=== PATIENT | female | born 1995 | race Caucasian/White ===

== ENCOUNTER 2020-12-18 10:37 | Emergency (ER) | payer BC, SELFPAY ==
[2020-12-18 10:42] VITALS: BP 138/89; PULSE 99; RESP 16; TEMP 36.5; O2SAT 100; BMI 34.7
[2020-12-18 11:02] VITALS: BP 138/89; PULSE 89; RESP 16; TEMP 36.6
[2020-12-18 11:02] LABS: UTC Strep Screen (Rapid) Positive (Negative)
--- NOTE | 2020-12-18 11:03 | HMH.EDUTC ---
[facility] [place] Clinical Impression: Strep throat Disposition: Home, Self-Care Condition on Discharge: Good Instructions: DI for Strep Throat, Strep Throat, Amoxicillin Additional Instructions: *Monitor Temp, Over the counter Motrin or Tylenol as directed/as needed Tylenol every 4 hours and Motrin every 6 hours (as long as your family doctor has told you that you can take it) for fever or pain. and straight to ER if unable to lower temp less than 101.0 after medication given *Warm salt water gargles may help to soothe the throat *Throat Lozenges *Warm fluids like tea with honey may help to soothe the throat *Sleep elevated *Humidifier/Vaporizer *If you did not take Penicillin shot or was unable to, start taking antibiotic immediately and make sure that you take it for the FULL length of time although you should start to feel better in 24-48 hours *change toothbrush and toothpaste 24-48 hours after starting to take antibiotics so you do not reinfect yourself Monitor Temp. Tylenol and/or Ibuprofen as needed. ER if fever is no less than 101 despite alternating Tylenol and Ibuprofen * Encourage fluids, water, Gatorade, powerade, pedialyte if /toddler/or child *Cold fluids, popsicles and ice cream may feel good on his throat Follow up IMMEDIATELY for new or worsening symptoms or no Noticeable improvement over the next 48-72 hours. 911 for difficulty breathing or swallowing Prescriptions: Amoxicillin [Amoxicillin 500mg Cap] 500 mg PO BID 10 Days #20 cap Transmission Status: Pending to Clinic Pharmacy [facility] Referrals: PCP,No [Primary Care Provider] - As needed Forms: Work/School Release Medical Decision Making - Royal Inquiry Pt receiving controlled substance: No Royal was queried for this patient: No Vital Signs: 12/18/20 10:42 12/18/20 11:02 Temperature 97.7 F 98 F Temperature Source Oral Pulse Rate 89 Pulse Rate [Right] 99 H Respiratory Rate 16 16 Blood Pressure 138/89 Blood Pressure [Right Arm] 138/89 Blood Pressure Mean [Right Arm] 105 Blood Pressure Source [Right Arm] Automatic Cuff Blood Pressure Position [Right Arm] Sitting 02 Sat by Pulse Oximetry 100 Oxygen Delivery Method Room Air - Lab Data Lab results reviewed: Yes: I reviewed the patient's lab results. Lab Results 12/18/20 10:59: Strep Scn Rapid Clinic Positive A [facility] [place] - General Stated complaint: Sore Throat Time Seen by Provider: 12/18/20 11:03 Mode of Arrival: Ambulatory Source of Information: Patient Limitations: No Limitations Description of Symptoms (Recalled from Triage Doc. by RN): sore throat. pt had a low grade fever, but took tylenol. HEENT Symptoms (Recalled from RN notes): Yes (sore throat) Resp Symptoms (Recalled from RN notes): No Skin Symptoms (Recalled from RN notes): No MS Symptoms (Recalled from RN notes): No Functional Status (Recalled from RN notes): na - History of Present Illness Provider Complaint: Patient state that she started having sore throat and low grade fever yesterday State that when she woke up today her throat was still hurting and feeling scratchy and had low grade fever so she took some Tylenol and came in to get checked States that she has had strep several times and feel like it does when she has it - Related Data Previous Rx's Medication Instructions Recorded Amoxicillin [Amoxicillin 500mg 500 mg PO BID 10 Days #20 cap 12/18/20 Cap] Allergies Allergy/AdvReac Type Severity Reaction Status Date / Time No Known Allergies Allergy Verified 12/18/20 10:59 - Worker's Comp Is this a Worker's Comp case?: No [facility] History - Hepatitis A Screen Drug use history?: No High risk sexual behaviors?: No History of sexually transmitted infection?: No Currently employed?: No Childcare worker?: No Do you have indoor plumbing?: Yes Do you have electricity?: Yes Attestation statement:: This patient has been screened for Hepatitis A risk factors. Lizzeth ackerman
== END 2020-12-18 11:10 | disposition home or self-care (01) ==
PROVIDERS: Emergency Provider Nurse Practitioner
DX: J02.0 Streptococcal pharyngitis (principal)
CPT/HCPCS: 87880; 99202; G0463

== ENCOUNTER → 2022-07-31 14:48 | Outpatient (CLI) | payer BC, SELFPAY ==
[2022-07-31 16:29] LABS: HCG,Quantitative 168 mIU/ml (0-5.42)
== END ==
PROVIDERS: PCP Family Medicine; Visit Provider Obstetrics & Gynecology
DX: N92.6 Irregular menstruation, unspecified; Z32.00 Encounter for pregnancy test, result unknown
CPT/HCPCS: 36415; 84702

== ENCOUNTER → 2022-08-21 14:53 | Outpatient (CLI) | payer BC, SELFPAY ==
[2022-08-21 16:47] LABS: Basophils # 0.1 K/mm3 (0-0.2); Basophils % 0.8 % (0.1-2.0); Eosinophils # 0.1 K/mm3 (0.0-0.4); Eosinophils % 0.5 % (0.1-12.0); Hematocrit 40.8 % (37.0-47.0); Hemoglobin 13.2 g/dL (12.2-16.2); Lymphocytes # 1.5 K/mm3 (0.7-4.5); Lymphocytes % 15.4 % (10-50); Mean Corpuscular HGB Conc 32.4 g/dL (31.8-35.4); Mean Corpuscular Hemoglobin 30.4 pg (27.0-31.2); Mean Corpuscular Volume 93.9 fl (81-99); Mean Platelet Volume 8.8 fl (7.4-10.4); Monocytes # 0.4 K/mm3 (0.1-1.0); Monocytes % 4.1 % (1.7-9.3); Neutrophils # 7.8 K/mm3 (1.8-7.8); Neutrophils % 79.3 % (37.0-80.0); Platelet Count 318 K/mm3 (142-424); Red Blood Count 4.35 M/mm3 (4.20-5.40); Red Cell Distribution Width 13.3 % (11.5-17.5); White Blood Count 9.8 K/mm3 (4.8-10.8)
[2022-08-23 13:49] LABS: Rapid Plasma Reagin Ab Titer Non Reactive (NonRea<1:1)
[2022-09-07 20:32] LABS: HIV Screen 4th Generation wRfx Non Reactive
[2022-09-07 20:33] LABS: Hepatitis B Surface Antigen Non Reactive; Hepatitis C Antibody <0.1
== END ==
PROVIDERS: PCP Family Medicine; Visit Provider Obstetrics & Gynecology
DX: Z34.90 Encounter for supervision of normal pregnancy, unspecified, unspecified trimester (principal)
CPT/HCPCS: 36415; 85025; 86592; 86703; 86762; 86850; 87340; 87380; G0432

== ENCOUNTER → 2022-12-02 13:00 | Outpatient (CLI) | payer OTHER, SELFPAY ==
--- NOTE | 2022-12-02 13:00 | US_ITS ---
FINAL REPORT CLINICAL HISTORY: 20 week anatomy scan FINDINGS: There is a single live intrauterine gestation. Presentation is breech. The cervix is closed and measures 4.8 cm. Placenta is posterior and grade 1. movement is noted. Questionable Low Grider contraction anteriorly. Three-vessel cord with satisfactory umbilical cord insertion. Four-chamber heart is noted. brain and ventricles are unremarkable. Chest and diaphragm are unremarkable. ABDOMEN: Both kidneys are unremarkable. Stomach is unremarkable. SPINE: No anomalies identified. Both arms and legs noted. AMNIOTIC FLUID: Appropriate amount. MEASUREMENTS: ULTRASOUND AGE: 22 weeks 0 days. GESTATION AGE: 21 weeks 6 days. ESTIMATED WEIGHT: 478 g GROWTH PERCENTILE: 58% BPD: 5.2 cm consistent with 21 weeks 5 days. OFD: 7 cm consistent with 22 weeks 5 days. HC: 19.4 cm consistent with 21 weeks 5 days. AC: 17.5 cm consistent with 22 weeks 3 days. FL: 3.8 cm consistent with 22 weeks 0 days. CEREBELLUM: 2.2 cm consistent with 22 weeks 1 days. HUMERUS: 3.7 cm consistent with 22 weeks 6 days. HC/AC: 1.11 CI: 74% FL/BPD: 72% FL/AC: 21% IMPRESSION: Single living IUP with an ultrasound age of 22 weeks 0 days. Questionable Low Grider contraction anteriorly. Reviewed, Interpreted and Dictated by Jaden Smiley III, MD Transcribed by Ez Sommers Authenticated and [facility]
== END ==
PROVIDERS: PCP Family Medicine; Visit Provider Obstetrics & Gynecology
DX: Z34.90 Encounter for supervision of normal pregnancy, unspecified, unspecified trimester (principal); Z3A.20 20 weeks gestation of pregnancy
CPT/HCPCS: 76811

== ENCOUNTER 2022-12-23 08:13 | Emergency (ER) | payer OTHER, SELFPAY ==
[2022-12-23 08:40] VITALS: BP 137/90; PULSE 126; RESP 20; TEMP 37.3; O2SAT 98; BMI 40.3
--- NOTE | 2022-12-23 08:58 | EXP.UTC ---
Discharge Plan Disposition Patient Disposition: Home, Self-Care Condition: Good Prescriptions Prescriptions: New amoxicillin [amoxicillin] 500 mg tablet 500 mg PO TID 10 Days Qty: 30 0RF No Action aspirin [Adult Aspirin Regimen] 81 mg tablet,delayed release (DR/EC) 81 mg PO DAILY cyanocobalamin (vitamin B-12) 1,000 mcg capsule 1,000 mcg PO DAILY DHA 200 mg capsule PO labetalol 100 mg tablet 100 mg PO DAILY Rx Instructions: Take 1 tablet by mouth, daily Referrals Follow up/Referrals: Provider,Referral, MD [Primary Care Provider] - See instructions Activity Restrictions/Add. Instructions Additional Instructions/Restrictions: Drink plenty of fluids. Take tylenol or ibuprofen for pain or fever. Take the medications as directed. Follow up with your regular doctor. GO TO THE ER FOR ANY WORSENING SYMPTOMS Throw your tooth brush away and get a new one. Clinical Impressions Clinical Impression: Strep throat Stand Alone Forms Stand Alone Forms: Work/School Release Instructions Patient Instructions: Strep Throat, DI for Strep Throat Discharge ED Provider: Fadi Antonio [facility] [place] General Stated complaint: Sore throat Mode of Arrival: Ambulatory Source of Information: Patient Limitations: No Limitations Time Seen by Provider: 12/23/22 08:58 Description of Symptoms (Recalled from Triage Doc. by RN): sore throat, strep HEENT Symptoms (Recalled from RN notes): Yes Resp Symptoms (Recalled from RN notes): No Skin Symptoms (Recalled from RN notes): No MS Symptoms (Recalled from RN notes): No Functional Status (Recalled from RN notes): n/a History of Present Illness Provider Complaint: She states that she has had a sore throat for the past 2 days. Related Data Home Medications Medication Instructions Recorded Confirmed docosahexaenoic acid 200 mg mg PO 08/21/22 12/16/22 capsule ( DHA) aspirin 81 mg tablet,delayed 81 mg PO DAILY 10/21/22 12/16/22 release (Adult Aspirin Regimen) cyanocobalamin (vitamin B-12) 1,000 mcg PO DAILY 12/16/22 12/16/22 1,000 mcg capsule labetalol 100 mg tablet 100 mg PO DAILY . 12/23/22 12/23/22 Previous Rx's Medication Instructions Recorded amoxicillin 500 mg tablet 500 mg PO TID 10 days #30 tabs 12/23/22 Allergies Allergy/AdvReac Type Severity Reaction Status Date / Time No Known Allergies Allergy Verified 12/23/22 08:54 Worker's Comp Is this a Worker's Comp case?: No [facility] Disclaimer: The information contained in this section may have been updated after the patient was seen, as this information can be updated by other users. Medical History Chronic hypertension affecting Maternal obesity affecting , antepartum No active medical problems Screening for genetic disease carrier status Surgical History No history of previous surgery Social History Smoking Status: Never smoker alcohol intake: current substance use type: denies use current occupational status: employed and other details: [place] Travel in the last 8 weeks: Inside the [facility] marital status: single number of children: 0 other: Last PAP SMEAR 2018 - Normal ROS Obtained: Yes All systems reviewed & no additional complaints except as documented Constitutional Constitutional: Reports chills and Reports fever(s) Eyes Eyes: Denies eye discharge ENT Ears, Nose, Mouth, and Throat: Reports as per HPI Cardiovascular Cardiovascular: Denies chest pain Respiratory Respiratory: Denies chest congestion and Reports cough Gastrointestinal Gastrointestingal: Reports nausea; Denies abdominal pain, constipation, cramping, diarrhea or vomiting Musculoskeletal Musculoskeletal: Denies arthralgias Integumentary/Breasts Skin/Breast: Denies
[2022-12-23 09:00] LABS: UTC Strep Screen (Rapid) Positive (Negative)
[2022-12-23 09:38] VITALS: BP 137/90; PULSE 126; RESP 20; TEMP 37.3; O2SAT 98
== END 2022-12-23 09:38 | disposition home or self-care (01) ==
PROVIDERS: Emergency Provider Nurse Practitioner Family
DX: J02.0 Streptococcal pharyngitis (principal); R50.9 Fever, unspecified
CPT/HCPCS: 87880; 99212; 99214; G0463

== ENCOUNTER → 2022-12-30 09:20 | Outpatient (CLI) | payer OTHER, SELFPAY ==
--- NOTE | 2022-12-30 09:21 | US_ITS ---
FINAL REPORT CLINICAL HISTORY: bleeding during -- spotting last week FINDINGS: There is a single live intrauterine gestation. Presentation is breech. Placenta is posterior, fundal and grade 1. Heart rate is 146 beats per minute. Cervix measures 4.2 cm. Visualized anatomy is within normal limits. The fetus is active. AMNIOTIC FLUID: Appropriate amount. MEASUREMENTS: ULTRASOUND AGE: 25 weeks 5 days. GESTATION AGE: 25 weeks 6 days. ESTIMATED WEIGHT: 831 g GROWTH PERCENTILE: 29% BPD: 6.4 cm corresponding to 25 weeks 6 days. OFD: 8.5 cm corresponding to 26 weeks 2 days. HC: 23.6 cm corresponding to 25 weeks 5 days. AC: 21.2 cm corresponding to 25 weeks 5 days. FL: 4.7 cm corresponding to 25 weeks 4 days. HC/AC: 1.12 CI: 75% FL/BPD: 73% FL/AC: 22% IMPRESSION: Single living IUP with an ultrasound age of 25 weeks 5 days. Reviewed, Interpreted and Dictated by Jaden Smiley III, MD Transcribed by Ez Sommers Authenticated and [facility]
== END ==
PROVIDERS: Visit Provider Obstetrics & Gynecology
DX: O46.90 Antepartum hemorrhage, unspecified, unspecified trimester (principal); Z3A.25 25 weeks gestation of pregnancy
CPT/HCPCS: 76816

== ENCOUNTER → 2023-01-01 07:52 | Outpatient (CLI) | payer OTHER, SELFPAY ==
[2023-01-01 08:09] LABS: Basophils % 0.2 % (0.1-2.0); Eosinophils # 0.1 K/mm3 (0.0-0.4); Eosinophils % 0.8 % (0.1-12.0); Hematocrit 34.3 % (37.0-47.0); Hemoglobin 11.3 g/dL (12.2-16.2); Lymphocytes # 1.5 K/mm3 (0.7-4.5); Lymphocytes % 16.6 % (10-50); Mean Corpuscular HGB Conc 33.1 g/dL (31.8-35.4); Mean Corpuscular Volume 90.7 fl (81-99); Mean Platelet Volume 9.3 fl (7.4-10.4); Monocytes # 0.5 K/mm3 (0.1-1.0); Monocytes % 5.7 % (1.7-9.3); Neutrophils # 6.7 K/mm3 (1.8-7.8); Neutrophils % 76.6 % (37.0-80.0); Platelet Count 240 K/mm3 (142-424); Red Blood Count 3.78 M/mm3 (4.20-5.40); Red Cell Distribution Width 14.6 % (11.5-17.5); White Blood Count 8.8 K/mm3 (4.8-10.8)
[2023-01-01 08:22] LABS: Glucose,Fasting 92 mg/dl (74-100)
[2023-01-01 09:50] LABS: Glucose 1 Hour 144 mg/dL (74-100)
== END ==
PROVIDERS: PCP Nurse Practitioner Family; Visit Provider Obstetrics & Gynecology
DX: Z34.90 Encounter for supervision of normal pregnancy, unspecified, unspecified trimester (principal); Z3A.25 25 weeks gestation of pregnancy
CPT/HCPCS: 36415; 82951; 85025

== ENCOUNTER → 2023-01-08 08:14 | Outpatient (CLI) | payer OTHER, SELFPAY ==
[2023-01-08 08:52] LABS: Glucose,Fasting 92 mg/dl (74-100)
[2023-01-08 10:10] LABS: Glucose 1 Hour 154 mg/dL (74-100)
[2023-01-08 11:10] LABS: Glucose 2 Hour 122 mg/dL (74-100)
[2023-01-08 12:12] LABS: Glucose 3 Hour 109 mg/dL (74-100)
== END ==
PROVIDERS: PCP Family Medicine; Visit Provider Obstetrics & Gynecology
DX: Z34.90 Encounter for supervision of normal pregnancy, unspecified, unspecified trimester (principal); Z3A.27 27 weeks gestation of pregnancy
CPT/HCPCS: 36415; 82951

== ENCOUNTER 2023-01-31 09:27 | Outpatient (CLI) | payer OTHER, SELFPAY ==
[2023-01-31 09:34] VITALS: BMI 41.3
[2023-01-31 09:42] LABS: Microscopic, Urine URINE MICROSCOPIC (MICROSCOPIC)
[2023-01-31 09:45] LABS: Appearance,Urine CLOUDY (Clear); Bilirubin,Urine Negative (Negative); Blood, Urine TRACE-I (Negative); Color,Urine YELLOW (Yellow); Glucose,Urine (UA) Negative (Negative); Ketones,Urine Negative (Negative); Leukocyte Esterase,Urine 1+ (Negative); Nitrate,Urine Negative (Negative); Protein,Urine TRACE (Negative); Specific Gravity, Urine 1.025 (1.005-1.030)
[2023-01-31 09:53] VITALS: BP 146/93; PULSE 125; RESP 20; TEMP 37.2; O2SAT 98; BMI 41.3
[2023-01-31 09:56] LABS: Bacteria,Urine 3+ /lpf; RBC,Urine Occasional #/hpf (0-3)
[2023-01-31 09:57] LABS: Amphetamine/Metha Screen,Urine Negative ng/ml (<1000); Barbiturates Screen,Urine Negative ng/ml (<200)
[2023-01-31 09:58] LABS: Benzodiazepines Screen,Urine Negative ng/ml (<200)
[2023-01-31 09:59] LABS: Cannabinoid Screen,Urine Negative ng/ml (<50); Cocaine Screen,Urine Negative ng/ml (<300)
[2023-01-31 10:00] LABS: Methadone Screen,Urine Negative ng/ml (<300)
[2023-01-31 10:01] LABS: Opiate Screen,Urine Negative ng/ml (<300); Phencyclidine Screen,Urine Negative ng/ml (<25)
[2023-01-31 10:15] VITALS: BP 130/90; PULSE 106; TEMP 36.9
== END 2023-01-31 11:00 | disposition home or self-care (01) ==
LOC: OBOUT 09:28 → OB 09:28
PROVIDERS: Visit Provider Obstetrics & Gynecology
DX: O36.8130 Decreased fetal movements, third trimester, not applicable or unspecified (principal); Z3A.30 30 weeks gestation of pregnancy
CPT/HCPCS: 59025; 80305; 81001; 87086; G0463

== ENCOUNTER → 2023-02-13 12:57 | Outpatient (CLI) | payer OTHER, SELFPAY ==
--- NOTE | 2023-02-13 12:58 | US_ITS ---
FINAL REPORT TECHNIQUE: Transvaginal ultrasound imaging of the pelvis was obtained. CLINICAL HISTORY: Large gestational age COMPARISON: 12/30/2022 FINDINGS: Cervix measures 3.4 cm. Fetus is in cephalic position. Heart rate is identified at 140 beats per minute. There is a three-vessel cord. The placenta is posterior and grade 2. DORY is normal at 16. Fetus it measures 79% growth percentile. Weight is 2221 g, previously measured 831 g. Average ultrasound age is 33 weeks 6 days. BPD: 8.63 cm consistent with 34 weeks 6 days. OFD: 10.54 cm consistent with 33 weeks 2 days. HC: 30.26 cm consistent with 33 weeks 5 days. AC: 29.9 cm consistent with 33 weeks 6 days. FL: 6.29 cm consistent with 32 weeks 4 days. IMPRESSION: Single, living intrauterine gestation with average ultrasound age of 33 weeks 6 days. DORY, normal at 16. Reviewed, Interpreted and Dictated by Jaden Smiley III, MD Transcribed by Oliva Gee Authenticated and [facility]
== END ==
PROVIDERS: PCP Obstetrics & Gynecology; Visit Provider Obstetrics & Gynecology
DX: O36.60X0 Maternal care for excessive fetal growth, unspecified trimester, not applicable or unspecified (principal)
CPT/HCPCS: 76816

== ENCOUNTER → 2023-03-05 16:57 | Outpatient (CLI) | payer OTHER, SELFPAY | PROVIDERS: Visit Provider Obstetrics & Gynecology | DX: O10.913 Unspecified pre-existing hypertension complicating pregnancy, third trimester (principal); Z3A.36 36 weeks gestation of pregnancy | CPT/HCPCS: 86403 ==

== ENCOUNTER → 2023-03-12 11:13 | Outpatient (CLI) | payer OTHER, SELFPAY ==
[2023-03-12 11:41] LABS: Basophils % 0.1 % (0.1-2.0); Eosinophils # 0.1 K/mm3 (0.0-0.4); Eosinophils % 0.7 % (0.1-12.0); Hematocrit 29.1 % (37.0-47.0); Hemoglobin 9.7 g/dL (12.2-16.2); Lymphocytes # 0.9 K/mm3 (0.7-4.5); Lymphocytes % 9.4 % (10-50); Mean Corpuscular HGB Conc 33.2 g/dL (31.8-35.4); Mean Corpuscular Hemoglobin 26.5 pg (27.0-31.2); Mean Corpuscular Volume 79.7 fl (81-99); Mean Platelet Volume 9.5 fl (7.4-10.4); Monocytes # 0.8 K/mm3 (0.1-1.0); Monocytes % 7.8 % (1.7-9.3); Neutrophils # 7.9 K/mm3 (1.8-7.8); Platelet Count 234 K/mm3 (142-424); Red Blood Count 3.65 M/mm3 (4.20-5.40); Red Cell Distribution Width 16.1 % (11.5-17.5); White Blood Count 9.6 K/mm3 (4.8-10.8)
[2023-03-12 12:19] LABS: Anion Gap 12.5 mEq/L (5-15); Blood Urea Nitrogen 3 mg/dl (7-17); Carbon Dioxide 24 mmol/L (22.0-30.0); Chloride 104 mmol/L (98-107); Estimated Glomerular Filt Rate 149 ml/min (>60); GFR (African American) 180 ML/MIN (>60); Glucose 84 mg/dl (74-100); Potassium 3.5 mmoL/L (3.5-5.1); Sodium 137 mmol/L (136-145)
== END ==
PROVIDERS: PCP Nurse Practitioner Family; Visit Provider Obstetrics & Gynecology
DX: O10.913 Unspecified pre-existing hypertension complicating pregnancy, third trimester (principal); Z3A.36 36 weeks gestation of pregnancy
CPT/HCPCS: 36415; 80048; 85025

== ENCOUNTER → 2023-03-13 15:23 | Outpatient (CLI) | payer OTHER, SELFPAY ==
[2023-03-13 19:00] LABS: Collection Time,Urine 24 hours; Total Volume,Urine 2500 mL (600-1600)
[2023-03-13 19:02] LABS: Patient Height,Urine 66 inches; Patient Weight,Urine 256 lbs
[2023-03-13 19:44] LABS: Total Protein 24 Hour,Urine 375 mg/24 hr (40-90)
[2023-03-13 19:46] LABS: Creatinine 24 Hour,Urine 1900 mg/24hr (630-2500)
[2023-03-13 19:53] LABS: Creatinine Clearance Urine 206.2 mL/min (25-115); Creatinine,Urine Random 76 mg/dL (Not Estab.)
== END ==
PROVIDERS: PCP Nurse Practitioner Family; Visit Provider Obstetrics & Gynecology
DX: O10.913 Unspecified pre-existing hypertension complicating pregnancy, third trimester (principal); Z3A.36 36 weeks gestation of pregnancy
CPT/HCPCS: 36415; 82575; 84155

== ENCOUNTER 2023-03-18 15:59 | Inpatient (IN) | payer OTHER, SELFPAY ==
[2023-03-18 16:37] VITALS: BP 135/87; PULSE 117; RESP 18; TEMP 36.7; O2SAT 97; BMI 41.1
[2023-03-18 16:48] VITALS: BMI 41.1
[2023-03-18 17:17] LABS: Basophils % 0.2 % (0.1-2.0); Eosinophils # 0.1 K/mm3 (0.0-0.4); Eosinophils % 0.8 % (0.1-12.0); Lymphocytes # 1.3 K/mm3 (0.7-4.5); Lymphocytes % 15.8 % (10-50); Mean Corpuscular HGB Conc 32.2 g/dL (31.8-35.4); Mean Corpuscular Hemoglobin 25.7 pg (27.0-31.2); Mean Corpuscular Volume 79.9 fl (81-99); Monocytes # 0.6 K/mm3 (0.1-1.0); Monocytes % 6.8 % (1.7-9.3); Neutrophils # 6.2 K/mm3 (1.8-7.8); Neutrophils % 76.4 % (37.0-80.0); Platelet Count 265 K/mm3 (142-424); Red Blood Count 3.88 M/mm3 (4.20-5.40); Red Cell Distribution Width 16.5 % (11.5-17.5); White Blood Count 8.2 K/mm3 (4.8-10.8)
[2023-03-18 17:20] LABS: Coronavirus 19, PCR Not Detected (NotDetected); Influenza A, PCR Not Detected (NotDetected); Influenza B, PCR Not Detected (NotDetected); Microscopic, Urine URINE MICROSCOPIC (MICROSCOPIC)
[2023-03-18 17:32] LABS: Appearance,Urine SL CLOUDY (Clear); Blood, Urine Negative (Negative); Color,Urine YELLOW (Yellow); Glucose,Urine (UA) Negative (Negative); Ketones,Urine TRACE (Negative); Leukocyte Esterase,Urine 1+ (Negative); Nitrate,Urine Negative (Negative); PH,Urine 6.5 (5.0-8.5); Protein,Urine 1+ (Negative); Specific Gravity, Urine 1.025 (1.005-1.030)
[2023-03-18 17:44] LABS: Barbiturates Screen,Urine Negative ng/ml (<200)
[2023-03-18 17:45] LABS: Amphetamine/Metha Screen,Urine Negative ng/ml (<1000); Benzodiazepines Screen,Urine Negative ng/ml (<200)
[2023-03-18 17:46] LABS: Cannabinoid Screen,Urine Negative ng/ml (<50)
[2023-03-18 17:47] LABS: Cocaine Screen,Urine Negative ng/ml (<300); Methadone Screen,Urine Negative ng/ml (<300)
[2023-03-18 17:48] LABS: Bacteria,Urine 1+ /lpf; Bilirubin,Urine 1+ (Negative); Calcium Oxalate Crystals,Urine 2+ /lpf; Opiate Screen,Urine Negative ng/ml (<300); Squamous Epithelial Cell,Urine 20-50 #/hpf (0-5); WBC,Urine Occasional #/hpf (0-3)
[2023-03-18 17:49] LABS: Phencyclidine Screen,Urine Negative ng/ml (<25)
[2023-03-19 04:25] VITALS: BP 143/83; PULSE 99; RESP 17; TEMP 36.6; O2SAT 99
--- NOTE | 2023-03-19 09:52 | EXP.OB.APHP ---
OB - H&P: HPI Antepartum History of Present Illness Chief complaint: Scheduled induction of labor History of present illness: Ms Veronica Chen is a 28 yo at 37w0d who presents to [facility] Delivery for scheduled induction of labor secondary to chronic hypertension on Labetalol. Baby is very active. She is taking Labetalol 200 mg PO BID, Aspirin 81 mg daily. Complains of Burt pope contractions and lower extremity swelling. No headaches or vision changes. History of Present Criteria for establishing EDC:: based on 1st trimester US only care: good care Ultrasounds: normal mid trimester US Obstetrical complications: other (chronic hypertension) Labs Blood type: O (+) positive Rubella: immune RPR/VDRL: nonreactive GBS status: negative HBsAG: negative [facility] Disclaimer: The information contained in this section may have been updated after the patient was seen, as this information can be updated by other users. Medical History (Updated 03/19/23 @ 11:27 by Clarisse Renee DO) Chronic hypertension affecting Maternal obesity affecting , antepartum with 37 weeks completed gestation Screening for genetic disease carrier status Trichomonal vaginitis during in second trimester Vaginal bleeding in Surgical History No history of previous surgery Social History Smoking Status: Never smoker alcohol intake: current substance use type: denies use current occupational status: employed Travel in the last 8 weeks: None marital status: single number of children: 0 other: Last PAP SMEAR 2018 - Normal Review of Systems Review of Systems Review of systems:: pertinent systems reviewed and negative unless documented below Meds Home Medications and Allergies Home Medications Medication Instructions Recorded Confirmed Type docosahexaenoic acid 200 mg 200 mg PO DAILY Supplement 08/21/22 03/18/23 History capsule ( DHA) aspirin 81 mg tablet,delayed 81 mg PO DAILY High blood pressure 10/21/22 03/18/23 History release (Adult Aspirin Regimen) cyanocobalamin (vitamin B-12) 1,000 mcg PO DAILY Supplement 12/16/22 03/18/23 History 1,000 mcg capsule labetalol 100 mg tablet 100 mg PO DAILY High blood pressure 03/12/23 03/19/23 History New Prescriptions to Start Prescriptions: Allergies Allergy/AdvReac Type Severity Reaction Status Date / Time No Known Allergies Allergy Verified 03/14/23 10:03 OB - H&P: Exam Physical Exam Vital signs: Temp Pulse Resp BP Pulse Ox 97.9 F 99 H 17 143/83 H 99 03/19/23 04:25 03/19/23 04:25 03/19/23 04:25 03/19/23 04:25 03/19/23 04:25 Constitutional no acute distress Routine HEENT Exam Head: Present normocephalic and atraumatic Eye: Absent conjunctivae pink ENT: Present mucous membranes moist and dentition normal Routine Neck Exam Present full ROM Routine Respiratory Exam Present CTA bilaterally and normal respiratory effort Routine Cardiovascular Exam Present RRR Routine Abdominal Exam Present soft (Gravid); Absent tenderness Routine Rectal Exam Patient deferred: visual exam Routine Exam External: Present normal urethra appearance; Absent erythema, tenderness, lesions or lacerations Routine Extremities Exam Present edema (+2 bilateral lower extremity swelling) and full ROM; Absent calf tenderness Routine Neurological Exam Present alert, oriented X3 and moving all extremities Routine Psychiatric Exam Present normal affect and cooperative Detailed Labor and Delivery Exam Dilation (cm): 1 Effacement (%): 50 Cervix position: anterior station: -2 Consistency: medium Membranes: intact Baseline heart rate: 130 monitor accelerations: Present monitor decelerations: None computer terminal operator variability: Moderate (11-25) Comments: Con
--- NOTE | 2023-03-19 13:21 | EXP.LABOR.NO ---
Labor Note Subjective: Date: 03/19/23 Time: 13:21 regular contraction Objective: NST:: Reactive Contractions:: every 2-3 minutes Cervical Dilation:: 4 Effacement:: 90% Station: -2 Membranes: intact Fetus: Monitoring?: Yes monitoring type:: External Assessment: Labor progressing?: Yes Problems: (1) with 37 weeks completed gestation: Category: Medical Code(s): Z3A.37 - 37 weeks gestation of (2) Chronic hypertension affecting : Category: Medical Code(s): O10.919 - Unspecified pre-existing hypertension complicating , unspecified trimester (3) Maternal obesity affecting , antepartum: Category: Medical Code(s): O99.210 - Obesity complicating , unspecified trimester Plan: Anesthesia for epidural?: No Continue to monitor?: Yes Additional information:: Cook catheter came out and cervix was 4/90/-2, membranes intact. Decision was made to give her a break, let her eat and shower and resume induction later tonight. NST is reactive, category 1.
[2023-03-19 20:12] VITALS: BP 146/97; PULSE 98; RESP 17; TEMP 36.4; O2SAT 100
[2023-03-20 04:22] VITALS: BP 139/75; PULSE 92; RESP 17; TEMP 36.8; O2SAT 97
--- NOTE | 2023-03-20 07:19 | EXP.LABOR.NO ---
Labor Note Subjective: Date: 03/20/23 Time: 07:19 Objective: NST:: Reactive Contractions:: every 4-5 minutes Cervical Dilation:: 4 Effacement:: 60% Station: -2 Membranes: artificially ruptured (0718 amniotomy with amnihook. Patient tolerated procedure well. Large amount of clear fluid) Fetus: Monitoring?: Yes monitoring type:: External Problems: (1) with 37 weeks completed gestation: Category: Medical Code(s): Z3A.37 - 37 weeks gestation of (2) Chronic hypertension affecting : Category: Medical Code(s): O10.919 - Unspecified pre-existing hypertension complicating , unspecified trimester (3) Maternal obesity affecting , antepartum: Category: Medical Code(s): O99.210 - Obesity complicating , unspecified trimester Plan: Anesthesia for epidural?: Yes Continue to monitor?: Yes Additional information:: Amniotomy performed at 0718, clear fluid noted Continue pitocin per protocol Close monitoring
--- NOTE | 2023-03-20 10:41 | EXP.ANES.CKL ---
[facility] Disclaimer: The information contained in this section may have been updated after the patient was seen, as this information can be updated by other users. Medical History (Updated 03/19/23 @ 11:27 by Clarisse Renee DO) Chronic hypertension affecting Maternal obesity affecting , antepartum with 37 weeks completed gestation Screening for genetic disease carrier status Trichomonal vaginitis during in second trimester Vaginal bleeding in Surgical History No history of previous surgery Social History Smoking Status: Never smoker alcohol intake: current substance use type: denies use current occupational status: employed Travel in the last 8 weeks: None marital status: single number of children: 0 other: Last PAP SMEAR 2018 - Normal [facility] Anesthesia Checklist Patient Identification Patient Identification: Verbal (Name & ) Structural Data Admitted From: Inpatient Planned Operative Procedure/s: labor epidural Consent for Planned Operative Procedure(s) Verified: Yes Airway Assessment C-Spine Mobility Assessed: Yes TMJ Mobility Assessed: Yes Dentition: Good Dentition Neurological Assessment Level of Consciousness: Awake, Alert and Appropriate Anesthesia Plan Anesthesia Risk discussed: Yes Anesthesia Plan: Verified ASA Class: II Anesthesia Type: Epidural
--- NOTE | 2023-03-20 11:29 | EXP.LABOR.NO ---
Labor Note Subjective: Date: 03/20/23 Time: 11:29 Objective: NST:: Reactive Contractions:: every 2-3 minutes Cervical Dilation:: 4 Effacement:: 80% Station: -2 Membranes: artificially ruptured Comment:: Molding noted Fetus: Monitoring?: Yes monitoring type:: Internal and External Assessment: Labor progressing?: No Problems: (1) with 37 weeks completed gestation: Category: Medical Code(s): Z3A.37 - 37 weeks gestation of (2) Chronic hypertension affecting : Category: Medical Code(s): O10.919 - Unspecified pre-existing hypertension complicating , unspecified trimester (3) Maternal obesity affecting , antepartum: Qualifiers: Obesity type affecting : other obesity Qualified Code(s): O99.210 - Obesity complicating , unspecified trimester; E66.8 - Other obesity Category: Medical Code(s): O99.210 - Obesity complicating , unspecified trimester Plan: Additional information:: IUPC inserted without difficulty to evaluate adequacy of contractions Pitocin is currently at [address] Will continue with maternal position changes Reevaluate in 2 hours. Patient has been 4 cm since yesterday when Cook catheter came out
--- NOTE | 2023-03-20 15:38 | P.PN_ITS ---
Labor Note Subjective: Date: 03/20/23 Time: 15:38 regular contraction Objective: NST:: Reactive Contractions:: every 2-3 minutes Cervical Dilation:: 4 Effacement:: 80% Station: -2 Membranes: artificially ruptured Fetus: Monitoring?: Yes monitoring type:: Internal and External Assessment: Labor progressing?: No Problems: (1) with 37 weeks completed gestation: Category: Medical Code(s): Z3A.37 - 37 weeks gestation of (2) Chronic hypertension affecting : Category: Medical Code(s): O10.919 - Unspecified pre-existing hypertension complicating , unspecified trimester (3) Maternal obesity affecting , antepartum: Qualifiers: Obesity type affecting : other obesity Qualified Code(s): O99.210 - Obesity complicating , unspecified trimester; E66.8 - Other obesity Category: Medical Code(s): O99.210 - Obesity complicating , unspecified trimester Plan: Additional information:: Patient underwent two day induction of labor with Cervidil followed by Cytotec and Cook catheter on 03/19/23. Cook catheter came out and patient was 4 cm dilated and contractin on her own. On 03/20/23 Pitocin was started and amniotomy was performed at 0718 with clear fluid. Pitocin reached 18 units. She received an epidural. IUPC was inserted and demonstrated adequate MVUs. Despite all interventions cervical was unchanged in over 7 hours and head molding was noted. NST reactive, category 1. Decision was made to proceed with primary c- section secondary to failure to progress and cephalopelvic disproportion. Risks, benefits, alternatives, expectations and possible complications discussed. All questions addressed and answered. Patient voiced understanding of risks and possible complications. Consent form signed.
[2023-03-20 16:16] LABS: Cord Blood PH 7.22 (7.35-7.45)
[2023-03-20 16:55] VITALS: BP 126/74; PULSE 84; RESP 16; TEMP 36.2; O2SAT 98
--- NOTE | 2023-03-20 16:56 | EXP.ANES.I ---
[facility] Anesthesia Record Part I Anesthesia Record I Intake, IV Amount: 800 Estimated blood loss (mL): 500 Urine output (mL): 250 Blood Pressure: 122/75 SaO2: 97 Pulse Rate: 90 Respiratory Rate: 12 Temperature: 97.5 F Patient is:: Awake and Stable Stable to PACU at:: 16:55
[2023-03-20 16:58] VITALS: BP 122/75; PULSE 90; RESP 12; TEMP 36.4; O2SAT 97
--- NOTE | 2023-03-20 17:02 | EXP.OP.NOTE ---
Date of procedure: 03/20/23 Pre-op Diagnosis:: 1. IUP at 37 weeks 1 day 2. Chronic hypertension in 3. Maternal obesity 4. Failure to progress 5. Cephalopelvic disproportion Post-op Diagnosis:: 1. IUP at 37 weeks 1 day 2. Chronic hypertension in 3. Maternal obesity 4. Failure to progress 5. Cephalopelvic disproportion Procedure performed:: Primary Low Transverse Section Surgeon:: Clarisse Renee DO Ship'S Pilot(s):: Cathie Kilgore MD TECHNICAL SUPPORT SPECIALIST:: Pete Leyva Anesthesia: spinal Estimated blood loss (mL): 500 Clinical Note:: Ms Veronica Chen is a 28 yo at 37w0d who presented to [facility] Labor and Delivery for scheduled induction of labor secondary to chronic hypertension on Labetalol. She is taking Labetalol 200 mg PO BID, Aspirin 81 mg daily. She underwent two day induction of labor with Cervidil, with no cervical change, followed by Cytotec and then Cook catheter on 03/19/23. Cook catheter came out a few hours after insertion and patient was 4 cm dilated and vicky on her own. On 03/20/23 Pitocin was started at 0440. Cervical exam was 4/60/-2. Amniotomy was performed at 0718 with clear fluid. Pitocin reached 18 units. She received an epidural. IUPC was inserted and demonstrated adequate MVUs. Despite all interventions cervical exam was unchanged over 7 hours and head molding was noted. Cervical exam 4/80/-2. NST reactive, category 1. Decision was made to proceed with primary secondary to failure to progress and cephalopelvic disproportion. Risks, benefits, alternatives, expectations and possible complications discussed. All questions addressed and answered. Patient voiced understanding of risks and possible complications. Consent form signed. Operative findings:: 1. Live female baby (baby's name is Connor Underwood) with APGARs 4 (1 min), 6 (5 min), 9 (10 min) 2. Grossly normal appearing uterus, bilateral fallopian tubes and bilateral ovaries Operative note:: The risks, benefits and alternatives of the procedure were reviewed with the patient. Informed consent was obtained. Patient was taken to the operating room where epidural was removed and spinal was performed. The patient received 2 grams of Ancef preoperatively. Patient was placed in dorsal supine position with a leftward tilt. SCDs in place. Vagina was prepped with Betadine swabs x 3. Nuñez catheter was inserted and draining clear urine prior to the start of the procedure. heart tones were obtained. Patient was then prepped and draped in normal sterile fashion. Allis clamp test was performed to ensure adequate anesthesia. A Pfannenstiel skin incision was made 2 cm above pubic symphysis. This was carried through to underlying layer of fascia. Fascia was incised in midline, extended laterally with Gibson scissors. Superior aspect of fascial incision was grasped with two Sonya clamps, elevated up, and rectus muscle dissected off bluntly and sharply with Gibson scissors. The retcus muscle was then in the midline and the peritoneum was entered bluntly with a digit. Peritoneal incision was then extended superiorly and inferiorly with good visualization of the bladder. Owen retractor was inserted. The lower uterine segment was incised in a transverse fashion. Small amount of clear amniotic fluid was noted. Head was delivered without difficulty. Remainder of body was delivered without difficulty. Mouth and nares were bulb suctioned. Grunting was noted. The umbilical cord was clamped and cut. The infant was handed to awaiting pediatric staff in stable condition. Dr. Mishra was present. Apgars were 4 (1 min), 6 (5 min), 9 (10 min). Cord blood was obtained. Gentle traction on the umbilical cord and uterine fundal massage delivered the placenta. Placenta was intact. Uterus was cleared of all clots and debris with a moist laparotomy sponge. Corners of the uterine incision were grasped with Allis clamps. The uterine incision was reapproximated with # 1 Vi
[2023-03-20 17:05] VITALS: BP 116/76; PULSE 86; RESP 16; O2SAT 98
[2023-03-20 17:15] VITALS: BP 120/74; PULSE 81; RESP 16; O2SAT 98
[2023-03-20 17:25] VITALS: BP 123/75; PULSE 69; RESP 16; O2SAT 98
--- NOTE | 2023-03-20 17:34 | SUR.PHASEI ---
1724- detailed report called to reina paniagua 1726- pt left in stable condition with reina paniagua in pt room. VSS, dressings CDI, family at bedside.
[2023-03-21 07:05] LABS: Basophils % 0.2 % (0.1-2.0); Eosinophils # 0.1 K/mm3 (0.0-0.4); Eosinophils % 0.6 % (0.1-12.0); Hematocrit 31.6 % (37.0-47.0); Hemoglobin 9.7 g/dL (12.2-16.2); Lymphocytes # 1.4 K/mm3 (0.7-4.5); Lymphocytes % 14.7 % (10-50); Mean Corpuscular HGB Conc 30.7 g/dL (31.8-35.4); Mean Corpuscular Hemoglobin 24.5 pg (27.0-31.2); Mean Corpuscular Volume 80.1 fl (81-99); Mean Platelet Volume 10.4 fl (7.4-10.4); Monocytes # 0.7 K/mm3 (0.1-1.0); Monocytes % 6.9 % (1.7-9.3); Neutrophils # 7.5 K/mm3 (1.8-7.8); Neutrophils % 77.6 % (37.0-80.0); Platelet Count 228 K/mm3 (142-424); Red Blood Count 3.94 M/mm3 (4.20-5.40); Red Cell Distribution Width 16.7 % (11.5-17.5); White Blood Count 9.6 K/mm3 (4.8-10.8)
[2023-03-21 07:55] VITALS: BP 131/89; PULSE 90; RESP 16; TEMP 36.7; O2SAT 98
--- NOTE | 2023-03-21 08:05 | EXP.DC.SUM ---
General Admission date:: 03/18/23 Discharge date: 03/21/23 HPI HPI HPI: POD # 1 s/p PLTCS Sitting comfortably in bed this morning. Pain controlled. Light lochia. Baby was transferred to last night. She plans on breast and supplemental bottle feeding. Voiding without difficulty and passing flatus. Tolerating regular diet. Ambulating well ad silvano. Denies headaches, vision changes, chest pain and shortness of breath. No fever/chills. Admits to lower extremity swelling that is better than prior to delivery. Hospital Course Hospital Course Hospital Course: Ms Veronica Chen is a 28 yo at 37w0d who presented to [facility] Labor and Delivery for scheduled induction of labor secondary to chronic hypertension on Labetalol. She was taking Labetalol 200 mg PO BID, Aspirin 81 mg daily. She underwent two day induction of labor with Cervidil, with no cervical change, followed by Cytotec and then Cook catheter on 03/19/23. Cook catheter came out a few hours after insertion and patient was 4 cm dilated and vicky on her own. On 03/20/23 Pitocin was started at 0440. Cervical exam was 4/60/-2. Amniotomy was performed at 0718 with clear fluid. Pitocin reached 18 units. She received an epidural. IUPC was inserted and demonstrated adequate contractions with MVUs. Despite all interventions cervical exam was unchanged over 7 hours and head molding was noted. Cervical exam 4/80/-2. NST reactive, category 1. Decision was made to proceed with primary secondary to failure to progress and cephalopelvic disproportion. She underwent primary . She delivered a live female baby (baby's name is Connor) weighing 7 lb 7 oz. APGARs 4 (1 min), 6 (5 min), 9 (10 min). EBL 500 mL. Baby was transferred to for acute respiratory distress. did not have any comfort care beds available and patient was placed on a list to be transferred when beds available. Patient did well postoperatively. Pain was controlled. She was voiding without difficulty and passing flatus. She had showered and was ambulating well ad silvano. Tolerating regular diet. Light lochia. Vital signs were stable, afebrile. Heart was regular rate and rhythm. Lungs clear to auscultation. Abdomen was soft, nontender. She had +1 bilateral lower extremity edema. No calf tenderness. She received Venofer 200 mg IV x 1 dose and was discharged home to be with her baby. She plans on breast and bottle feeding. She was instructed to follow-up in the office in 6 days for BP and incision check. Exam Data for Last 24 hours Vital signs and Labs for Last 24 Hours: Temp Pulse Resp BP Pulse Ox 97.5 F L 69 16 123/75 98 03/20/23 16:58 03/20/23 17:25 03/20/23 17:25 03/20/23 17:25 03/20/23 17:25 Laboratory Results - last 24 hr 03/20/23 16:14: Cord ABG pH 7.22 L* 03/21/23 06:46: WBC 9.6, RBC 3.94 L, Hgb 9.7 L, Hct 31.6 L, MCV 80.1 L, MCH 24.5 L, MCHC 30.7 L, RDW 16.7, Plt Count 228, MPV 10.4, Neut % (Auto) 77.6, Lymph % (Auto) 14.7, [place] % (Auto) 6.9, Eos % (Auto) 0.6, Baso % (Auto) 0.2, Neut # (Auto) 7.5, Lymph # (Auto) 1.4, [place] # (Auto) 0.7, Eos # (Auto) 0.1, Baso # (Auto) 0.0 I & O for Last 24 hours: Intake & Output 03/18/23 03/19/23 03/20/23 03/21/23 23:59 23:59 23:59 23:59 Intake Total 800 / 800 Output Total 375 / 375 Balance 425 / 425 Weight 255 lb Microbiology Reports for the Last 24 Hours: Microbiology 03/18/23 17:00 Urine,Clean Catch Urine Culture - Final NO GROWTH AFTER 48 HOURS Constitutional Constitutional: no acute distress *Routine HEENT Exam Head: Present normocephalic and atraumatic Eye: Absent conjunctivae pink ENT: Present mucous membranes moist and dentition normal *Routine Neck Exam Neck: Present full ROM *Routine Respiratory Exam Respiratory: Present CTA bilaterally and normal respiratory effort *Routine Cardiovascular Exam Cardiovascular: Present RRR *Routine Abdominal Exam Abdominal: Present soft and
--- NOTE | 2023-03-24 08:23 | EXP.ANES.II ---
[facility] Anesthesia Record Part II Anesthesia Record Part II Discharge Time: 17:25 Destination: Obstetric Gynecology Dept PACU nurse assessment reviewed?: Yes Patient Condition:: Good Anesthesia Complications:: None Swallowing reflex intact?: Yes Cyanosis?: No Blood Pressure: 123/75 Pulse Rate: 69 Temperature: 97.2 F Mental Status: Alert & Oriented Pain level:: 0 Nausea and/or vomitting:: None Intake, IV Amount: 0
[2023-03-24 08:24] VITALS: BP 123/75; PULSE 69; TEMP 36.2
== END 2023-03-21 11:38 | disposition home or self-care (01) | DRG 787 ==
PROVIDERS: Admitting Provider Obstetrics & Gynecology; PCP Nurse Practitioner Family; Visit Provider Obstetrics & Gynecology
PROC: 10D00Z1 Extraction of Products of Conception, Low, Open Approach (ICD-10-PCS; principal; 2023-03-20 15:30)
DX: O10.92 Unspecified pre-existing hypertension complicating childbirth (principal); D62 Acute posthemorrhagic anemia; Z3A.37 37 weeks gestation of pregnancy; Z37.0 Single live birth; O62.0 Primary inadequate contractions; O33.9 Maternal care for disproportion, unspecified; Z23 Encounter for immunization; O90.81 Anemia of the puerperium
CPT/HCPCS: 59514; 59025; 80305; 81001; 82800; 85025; 86850; 87086; 87636; 94761; C1758; C9803; G0283; J0595; J1756; J2405; U0003; U0005

== ENCOUNTER 2025-03-16 07:25 | Emergency (ER) | payer BC, SELFPAY ==
--- NOTE | 2025-03-16 07:30 | PC.NURSE ---
urine sent to lab
--- OUTSIDE RECORDS SUMMARY | 2025-03-16 07:31 | XMS_ITS | Clinical Summary ---
Author Organization Healthcare Address [address] [place] [address] Care Team Providers Care Heel Former Name Role Phone Unknown, Unknown Primary Care Provider Unavailab le Allergies No known active allergies Medications * This document contains information received from the source organization and may not represent a complete record from that organization. fluticasone (Flonase) 50 MCG/ACT nasal sprayIndications :Acute non-recurrent sinusitis, unspecified location Administer 2 sprays into each nostril 1 (one) time each day. Shake gently. Before first use, prime pump. After use, clean tip and replace cap. 16 g 1 Active promethazine-dex tromethorphan (Phenergan-DM) 6.25-15 MG/5ML syrupIndications :Acute non-recurrent sinusitis, unspecified location Take 5-10 mL by mouth at night if needed for cough. 120 mL 1 Active Active Problems No known active problems Immunizations Immunization Administration Dates Next Due Hep B, adult 1996,1996,1996 Influenza, Unspecified 06/23/2020 MMR 04/28/2000,03/18/1997 Pfizer-BioNTVHSquared COVID-19 Vac cine (Purple Cap) 12+ 06/12/2021,05/22/2021 Tdap 04/23/2010 Social History Tobacco Use Types Packs/Day Years Used Date Smoking Tobacco: Never Smokeless Tobacco: Never Comments No Sex and Gender Information Value Date Recorded Sex Assigned at Not on file Legal Sex Female 8:03 PM EDT Gender Identity Female 06/15/2021 8:50 AM EDT Sexual Orientation Straight 09/04/2021 11 :24 AM EST Last Filed Vital Signs Vital Sign Reading Time Taken Comments Blood Pressure 130/91 09/04/2021 11:33 AM EST Pulse 89 09/04/2021 11:33 AM EST Temperature 36.4 C (97.6 F) 09/04/2021 11:33 AM EST Respiratory Rate - - Oxygen Saturation - - Inhaled Oxygen Concentration - - Weight 111 kg (245 lb) 09/04/2021 11:33 AM EST Height 167.6 cm (5' 6 ) 09/04/2021 11:33 AM EST Body Mass Index 39.54 09/04/2021 11:33 AM EST Plan of Treatment Health Maintenance Due Date Last Done Comments [facility]-Depression Screening 1996 [facility]-/Child/Adol SDOH Screenings 1996 [facility]-Varicella Vaccines (1 of 2 - 13+ 2-dose series) 2009 [facility]- SDOH Screenings 2014 [facility]-Adult SDOH Screenings 2014 [facility]-Pap Smear 2017 [facility]-DTaP,Tdap,and Td Vaccines (2 - Td or Tdap) 04/23/2020 04/23/2010 [id number] Vaccine (3 - season) 2024 06/12/2021, 05/22/2021 [facility]-Influenza Vaccine (Season Ended) 2025 06/23/2020, 06/22/2018 [facility]-Zoster Vaccines (1 of 2) 2046 [facility]-Hepatitis B Vaccines Completed 997, 1996, 1996 HPV Vaccines Completed 07/01/2009, 12/21/2008 [facility]-HIB Vaccines Aged Out No longer e ligible based on patient's age to complete this topic [facility]-Hepatitis A Vaccines Aged Out No longer eligible based on patient's age to complete this topic [facility]-IPV Vaccines Aged Out No longer e ligible based on patient's age to complete this topic [facility]-Pneumococcal Vaccine: Pediatrics (0 to 5 Years) and At-Risk Patients (6 to 49 Years) Aged Out No longer eligible b ased on patient's age to complete this topic [facility]-Rotavirus Vaccines Aged Out No lo nger eligible based on patient's age to complete this topic Insurance [facility] Care Teams Heel Former Relationship Specialty Start Date End Date Unknown, Unknown [place], [place] PCP - General 09/04/21
[2025-03-16 07:33] LABS: Microscopic, Urine URINE MICROSCOPIC (MICROSCOPIC)
[2025-03-16 07:34] VITALS: BP 120/87; PULSE 88; RESP 19; TEMP 36.7; O2SAT 98; BMI 37.1
[2025-03-16 07:39] LABS: Appearance,Urine CLEAR (Clear); Bilirubin,Urine Negative (Negative); Blood, Urine Negative (Negative); Color,Urine YELLOW (Yellow); Glucose,Urine (UA) Negative (Negative); Ketones,Urine Negative (Negative); Leukocyte Esterase,Urine Negative (Negative); Nitrate,Urine Negative (Negative); Protein,Urine Negative (Negative); Specific Gravity, Urine >= 1.030 (1.005-1.030); Urobilinogen,Urine 0.2 EU/dl (0.2)
--- NOTE | 2025-03-16 07:49 | HMH.EDGENADL ---
Discharge Plan Disposition Patient Disposition: Home, Self-Care Prescriptions Prescriptions: New ondansetron 4 mg tablet,disintegrating 4 mg PO Q6H PRN (Reason: nausea and vomiting) Qty: 10 0RF Referrals Follow up/Referrals: Provider,Referral, MD [Primary Care Provider, Medical] - See instructions Activity Restrictions/Add. Instructions Additional Instructions/Restrictions: Call your family doctor to establish care for this visit to the emergency department and schedule follow-up within 48 hours to ensure improvement. If you have any worsening of your condition or any other concerning signs or symptoms, return to the emergency department or your primary care doctor for further evaluation. Zofran sent to the pharmacy, every 6 hours as needed for nausea and vomiting. Also will stimulate appetite. Clinical Impressions Clinical Impression: Vomiting, Diarrhea Instructions Patient Instructions: DI for Acute Abdominal Pain Print Language Print Language: Greek Discharge ED Provider: Gregory Friend General Adult HPI General Chief complaint: Abdominal Pain Stated complaint: abd pain, vomiting, diarrhea Time Seen by Provider: 03/16/25 07:33 Mode of Arrival: Family Vehicle Source of Information: Patient and Medical Record Description of Symptoms (Recalled from ER Triage Doc. by RN): Pt c/o upper abd pain with n/v/d since yesterday at 1600. States she initally thought is was food poisoning and tried taking pepto to relive her sxs however it did not. She has 1 prior but no other abd surgeies. No daily medications of significant PMH. Denies any fever, chills, or body aches. History of Present Illness HPI narrative: Please note that above description of symptoms, in this electronic medical record under categorization of recalled from ER triage doctor by RN are reflective of an initial nursing assessment, however, is not reflective of my full history and physical exam that was personally taken and clarified. Consequentially, this preceding description of symptoms, which may include the patient's categorized chief complaint in the EMR, do not reflect my personal clinical impression, and the ultimate description of history of present illness and patient stated complaints should be deferred to this section of the note. Unless stated otherwise or congruent with this section of the note, additional signs, symptoms, or incongruence should be interpreted as inaccurate with my clinical impression. Related Data Previous Rx's ?Medication ?Instructions ?Recorded ondansetron 4 mg disintegrating 4 mg PO Q6H PRN nausea and 03/16/25 tablet vomiting #10 tabs Allergies Allergy/AdvReac Type Severity Reaction Status Date / Time No Known Allergies Allergy Verified 12/06/24 18:04 [facility] Disclaimer: The information contained in this section may have been updated after the patient was seen, as this information can be updated by other users. Medical History (Updated 03/16/25 @ 09:14 by Gregory Friend MD) Strep throat anxiety Clogged duct, Chronic hypertension Acute blood loss anemia with 37 weeks completed gestation Trichomonal vaginitis during in second trimester Vaginal bleeding in Chronic hypertension affecting Screening for genetic disease carrier status Maternal obesity affecting , antepartum Surgical History S/P Social History Smoking Status: Never smoker alcohol intake: current alcohol intake frequency: a few times a week substance use type: denies use current occupational status: employed Travel in the last 8 weeks?: None marital status: single number of children: 0 other: Last PAP SMEAR 2018 - Normal Have you lived/traveled outside US in past 30 days?: No Contact w/someone who lives/traveled outside US past 30 days?: No Exposure to someone with infectious disease in past 14 days?: No Do you have a fever (greater than 100.4 F or 38 C)?: No Have you tested positive for COVID-19?: No Exposed to someone with COVID-19 in past 14 days?: No Do you have a sore throat?: No Do you have a cough?: No Do you have any weakness?: No Do you have any diarrhea?: Yes Are you experiencing any unusual bleeding?: No Do you have any muscle aches/pain?: No Do you have any abdominal pain?: Yes Are you experiencing loss of taste or smell?: No Other Medical History Have you received the Flu Vaccine for this season: No Have you received the Pneumonia Vaccine: No ROS Obtained: Yes All systems reviewed & no additional complaints except as documented Physical Exam General General appearance: alert and in distress (Secondary to retching) Head Head exam: atraumatic and normocephalic Eye Eye exam: Present normal appearance, PERRL and EOMI Neck Neck exam: Present normal inspection, full ROM and trachea midline Respiratory Respiratory exam: Absent respiratory distress, wheezes, stridor, accessory muscle use or prolonged expiratory phase Cardiovascular Cardiovascular exam: Present normal rhythm, tachycardia and other (Pulses equal symmetric in upper and lower extremities) Abdominal Exam Abdominal exam: Present soft; Absent distention, tenderness or pulsatile mass Extremities Exam Extremities exam: Absent edema Neurological Exam Neurological exam: Present alert, oriented X3 and CN II-XII intact; Absent motor sensory deficit Skin Skin exam: Present warm and dry; Absent diaphoresis or erythema Medical Decision Making Medical Records Medical records reviewed: Yes I reviewed the patient's medical records. Screening: Per USPSTF and CDC recommendations, given the prevalence of disease in our region, it is our hospital?s policy to screen for HIV and viral Hepatitis for all patients aged 18 and over and those with ongoing risk factors. Royal Inquiry Pt receiving controlled substance: No Royal was queried for this patient: No Vital Signs: 03/16/25 07:34 03/16/25 08:00 03/16/25 08:30 Temperature 98.0 F Temperature Source Oral Pulse Rate 85 85 Pulse Rate [Right] 88 Respiratory Rate 19 18 18 Blood Pressure 122/69 132/66 Blood Pressure [Right Arm] 120/87 Blood Pressure Mean 86 88 Blood Pressure Mean [Right Arm] 98 Blood Pressure Source [Right Arm] Automatic Cuff 02 Sat by Pulse Oximetry 98 99 99 Oxygen Delivery Method Room Air Lab Data Lab Results 03/16/25 07:28: Urine Color Yellow, Urine Appearance Clear, Urine pH 6.0, Ur Specific [place] >= 1.030, Urine Protein Negative, Urine Glucose (UA) Negative, Urine Ketones Negative, Urine Blood Negative, Urine Nitrate Negative, Urine Bilirubin Negative, Urine Urobilinogen 0.2, Ur Leukocyte Esterase Negative, Urine RBC None, Urine WBC 3-5, Ur Squamous Epith Cells 5-10, Urine Bacteria Trace, Urine Mucus Trace, Urine HCG, Qual Negative 03/16/25 07:35: WBC 14.0 H, RBC 4.72, Hgb 14.2, Hct 41.8, MCV 88.6, MCH 30.1, MCHC 34.0, RDW 13.2, Plt Count 258, MPV 10.7 H, Neut % (Auto) 91.6 H, Lymph % (Auto) 3.4 L, [place] % (Auto) 4.3, Eos % (Auto) 0.2, Baso % (Auto) 0.3, Neut # (Auto) 12.8 H, Lymph # (Auto) 0.5 L, [place] # (Auto) 0.6, Eos # (Auto) 0.0, Baso # (Auto) 0.0, Total Counted 100, Neutrophils % (Manual) 93 H, Lymphocytes % (Manual) 5 L, Monocytes % (Manual) 2, Platelet Estimate Normal, RBC Morphology Normal, Sodium 141, Potassium 3.8, Chloride 104, Carbon Dioxide 25, Anion Gap 15.8 H, BUN 14, Creatinine 0.70, Estimated Creat Clear 195, Estimated GFR 99, Est GFR ( Amer) 120, Glucose 127 H, Calcium 8.7, Total Bilirubin 0.6, AST 21, ALT 25, Alkaline Phosphatase 78, Total Protein 8.1, Albumin 4.5, Globulin 3.6 H, Albumin/Globulin Ratio 1.3, Lipase 64, HCV Ab KIRA w/Rflx PCR Qn Negative, HIV Ag/Ab Combo Qual Negative 03/16/25 07:35 03/16/25 07:35 Orders (Tests/Meds): ED MEDICATIONS Discontinued Medications Generic Name Dose Route Start Last Admin Trade Name Freq PRN Reason Stop Dose Admin Lactated Ringer's 1,000 mls @ 999 mls/hr 03/16/25 07:33 03/16/25 07:50 Lactated Ringer's 1000 Ml Bag IV 03/16/25 08:33 999 mls/hr .Q1H1M ONE Administration Ketorolac Tromethamine 15 mg 03/16/25 08:17 03/16/25 08:29 Ketorolac 30mg/Ml Vial IV 03/16/25 08:18 15 mg ONCE ONE Administration Ondansetron HCl 4 mg 03/16/25 07:33 03/16/25 07:51 Ondansetron 4mg/2ml Vial IV 03/16/25 07:34 4 mg ONCE ONE Administration ORDERS Category Date Time Status POCUS Point of Care (ER Only) Stat Exams 03/16/25 08:44 Ordered CBC w/Auto Diff [Complete Blood Count Auto Diff] Stat Lab 03/16/25 07:35 Completed CMP [Comprehensive Metabolic Panel] Stat Lab 03/16/25 07:35 Completed HIV Combo Stat Lab 03/16/25 07:35 Completed Hepatitis C Ab Qual. W/ RFX Stat Lab 03/16/25 07:35 Completed Lipase Stat Lab 03/16/25 07:35 Completed UA [Urinalysis and Microscopic] Stat Lab 03/16/25 07:28 Completed Urine , HCG Qual. Stat Lab 03/16/25 07:28 Completed Medical Decision Narrative: 30-year-old female presenting with vomiting and diarrhea. She states that the abdominal cramping started yesterday, 03/15. Followed by vomiting this nonbloody, nonbilious as well as diarrhea this nonbloody. Patient has no known sick contacts. Abdominal pain is epigastric, cramping, worse than labor, and actually relieved by vomiting and diarrhea. In between episodes of vomiting diarrhea just prior to vomiting and diarrhea its maximal intensity and cramping. Does not radiate. No vaginal discharge or bleeding, no urinary symptoms. Came in for further evaluation. On arrival, very clinically well, but intermittently in distress secondary to retching. Vomit is nonbloody, nonbilious. Abdomen is nondistended, minimally tender. Differential includes , ectopic , pancreatitis, gastritis, PUD, gastroenteritis, among others. Patient was given Zofran and fluids. Labs obtained. On independent interpretation, nonactionable labs. Mild elevated leukocytosis, but in the setting of vomiting I feel this is reasonable 14. Lipase negative, negative, urinalysis negative. Consider doing abdominal CT, but on reevaluation, patient states she is feeling much better. Still having intermittent mild crampy pain, but significantly better than when she came in. States that she is little worried it may be her gallbladder, bedside [id number] ultrasound was performed. Gallbladder is normal. Because patient at baseline without signs or symptoms of clinical decompensation, deemed appropriate for discharge. Results were relayed to patient who voiced understanding and were agreeable to outpatient management and follow up. I discussed my clinical impression with patient and answered all questions. At this time, the evidence for any other entities in the differential is insufficient to warrant any further testing or ED observation. This was explained as well. Advisory was given that persistent or worsening symptoms require further evaluation. I confirmed the understanding of this discussion. Dowel Pin Man disclaimer Much of this encounter note is an electronic wax coating machine tender spoken language to printed text. Electronic wax coating machine tender of the spoken language may permit errors. Although I have reviewed the note, some errors may still exist. Procedures Limited Ultrasound Indication:: Limited RUQ ultrasound Indication: Epigastric abdominal pain and vomiting Identified structures: -Gallbladder -Gallbladder wall -Common bile duct -Liver Findings: Sonographic Nielsen sign: Absent Gallstones: Absent Sludge: Absent Pericholecystic fluid: Absent Maximal GB wall thickness (mm) (normal is </= 3mm): Normal Common bile duct width (mm) (normal is </= 6mm): Normal Gallbladder width (cm) (normal is < 4cm): Normal Gallbladder length (cm) (normal is < 10cm): Normal Impression: Normal right upper quadrant ultrasound with no secondary findings of cholecystitis or choledocholithiasis Images were saved to permanent archive The study was technically adequate CPT 44098-90 This study was performed by me, and I personally interpreted all images/videos. Based on my clinical judgement, these images were adequate and did not necessitate further imaging. Critical Care Critical Care Time Critical Care Time: No
[2025-03-16 07:50] LABS: Basophils % 0.3 % (0.1-2.0); Eosinophils % 0.2 % (0.1-12.0); Hematocrit 41.8 % (37.0-47.0); Hemoglobin 14.2 g/dL (12.2-16.2); Immature Granulocytes # 0.03 10^3uL; Immature Granulocytes % 0.2 %; Lymphocytes # 0.5 K/mm3 (0.7-4.5); Lymphocytes % 3.4 % (10-50); Mean Corpuscular Hemoglobin 30.1 pg (27.0-31.2); Mean Corpuscular Volume 88.6 fl (81-99); Mean Platelet Volume 10.7 fl (7.4-10.4); Monocytes # 0.6 K/mm3 (0.1-1.0); Monocytes % 4.3 % (1.7-9.3); Neutrophils # 12.8 K/mm3 (1.8-7.8); Neutrophils % 91.6 % (37.0-80.0); Nucleated Red Blood Cells # 0 10^3/uL; Nucleated Red Blood Cells % 0 %; Platelet Count 258 K/mm3 (142-424); Red Blood Count 4.72 M/mm3 (4.20-5.40); Red Cell Distribution Width 13.2 % (11.5-17.5); Red Cell Distribution Width-SD 42.9 fL
[2025-03-16] MEDS: LACTATED RINGERS 1000ML 1,000 ML 999 ML IV (07:50)
[2025-03-16] MEDS: ONDANSETRON 4MG/2ML VIAL 4 MG IV (07:51)
[2025-03-16 07:53] LABS: Urine Pregnancy, HCG Qual. Negative (Negative)
[2025-03-16 07:57] LABS: MANUAL DIFFERENTIAL MANUAL DIFFERENTIAL (MANUAL DIFF)
[2025-03-16 08:00] VITALS: BP 122/69; PULSE 85; RESP 18; O2SAT 99
[2025-03-16 08:04] LABS: Bacteria,Urine Trace /lpf; Mucus,Urine Trace /lpf
[2025-03-16 08:15] LABS: Albumin Level 4.5 g/dl (3.5-5.0); Chloride 104 mmol/L (98-107)
[2025-03-16 08:16] LABS: Potassium 3.8 mmoL/L (3.5-5.1); Sodium 141 mmol/L (136-145)
[2025-03-16 08:18] LABS: Alanine Aminotransferase 25 U/L (12-78); Alkaline Phosphatase 78 U/L (38-126); Anion Gap 15.8 mEq/L (5-15); Aspartate Amino Transferase 21 U/L (14-36); Bilirubin,Total 0.6 mg/dl (0.2-1.3); Blood Urea Nitrogen 14 mg/dl (7-17); Carbon Dioxide 25 mmol/L (22.0-30.0); Creatinine Clearance Estimated 195 mL/min (50-200); Estimated Glomerular Filt Rate 99 ml/min (>60); GFR (African American) 120 ML/MIN (>60)
[2025-03-16 08:19] LABS: Albumin/Globulin Ratio 1.3 (1.1-1.8); Calcium 8.7 mg/dl (8.4-10.2); Globulin 3.6 g/dL (1.3-3.2); Glucose 127 mg/dl (74-100); Lipase 64 U/L (23-300); Total Protein,Serum 8.1 g/dl (6.3-8.2)
[2025-03-16] MEDS: KETOROLAC 30MG/ML VIAL 15 MG IV (08:29)
[2025-03-16 08:30] VITALS: BP 132/66; PULSE 85; RESP 18; O2SAT 99
[2025-03-16 08:59] LABS: HIV Combo NEGATIVE (Negative)
[2025-03-16 09:08] LABS: Hepatitis C Ab Qual. W/ RFX NEGATIVE (Negative); Lymphocytes % 5 % (10-50); Monocytes % 2 % (2-9); Neutrophils % 93 % (42-76); Platelet Estimate Normal; RBC Morphology Normal; Total Cells Counted 100
[2025-03-16 09:20] VITALS: BP 117/73; PULSE 78; RESP 16; TEMP 36.7; O2SAT 98
== END 2025-03-16 09:29 | disposition home or self-care (01) ==
PROVIDERS: Emergency Provider Emergency Medicine
DX: R10.10 Upper abdominal pain, unspecified (principal); R11.2 Nausea with vomiting, unspecified; R19.7 Diarrhea, unspecified
CPT/HCPCS: 80053; 81001; 81025; 83690; 85007; 85025; 85027; 86803; 87389; 96361; 96374; 96375; 99284; J1885; J2405; J7120